=== PATIENT | female | born 1930 | race Caucasian/White ===

== ENCOUNTER 2017-12-09 11:08 | Observation (INO) | payer MEDICARE, OTHER ==
[~2017-12-09] VITALS: Ht 162.6 cm; Wt 95.0 kg
[2017-12-09 12:11] LABS: ANION GAP 14.6 mmol/L (8-16); CARBON DIOXIDE 27.7 mmol/L (21.0-32.0); CREATININE - SERUM 2.1 mg/dL (0.6-1.3); POTASSIUM - SERUM 3.3 mmol/L (3.5-5.1)
[2017-12-09] MEDS ORDERED: ULORIC40 MG PO (12:15)
[2017-12-09] MEDS ORDERED: LIPITOR10 MG PO (12:16)
[2017-12-09] MEDS ORDERED: ATROVENT HFA12.9 GM INH (12:17)
[2017-12-09] MEDS ORDERED: DIPROLENE 0.05%60 M1 TOPICAL (12:18)
[2017-12-09] MEDS ORDERED: COREG25 MG PO (12:18)
[2017-12-09] MEDS ORDERED: CATAPRES0.1 MG PO (12:19)
[2017-12-09] MEDS ORDERED: FERROUS SULFAT325 MG PO (12:20)
[2017-12-09] MEDS ORDERED: FUROSEMIDE40 MG PO (12:20)
[2017-12-09 12:21] VITALS: BMI 35.2
[2017-12-09] MEDS ORDERED: ISOSORBIDE MONO30 M1 PO (12:21)
[2017-12-09] MEDS ORDERED: PLAQUENIL200 MG PO (12:21)
[2017-12-09] MEDS ORDERED: PREDNISONE1 MG PO (12:22)
[2017-12-09] MEDS ORDERED: SYNTHROID88 MCG PO (12:22)
[2017-12-09] MEDS ORDERED: SINGULAIR10 MG PO (12:22)
[2017-12-09] MEDS ORDERED: PROTONIX40 MG PO (12:23)
[2017-12-09] MEDS ORDERED: NIFEDIPINE ER60 MG PO (12:24)
[2017-12-09] MEDS ORDERED: TRADJENTA5 MG PO (12:24)
[2017-12-09] MEDS ORDERED: ULTRAM50 MG PO (12:25)
[2017-12-09] MEDS ORDERED: TOUJEO SOL300 UNIT/1 SC (12:26)
[2017-12-09] MEDS ORDERED: NOVOLOG100 U/M1 SC (12:27)
[2017-12-09 15:33] VITALS: BP 156/51
[2017-12-09 16:07] LABS: APPEARANCE CLEAR (CLEAR); BILIRUBIN NEGATIVE (NEGATIVE); COLOR STRAW (YELLOW); GLUCOSE NEGATIVE (NEGATIVE); KETONE NEGATIVE (NEGATIVE); NITRITE NEGATIVE (NEGATIVE); PROTEIN NEGATIVE (NEGATIVE); UROBILINOGEN NORMAL (NORMAL)
[2017-12-09 20:00] VITALS: BP 167/44
[2017-12-10] VITALS: BP 146/63
[2017-12-10 04:00] VITALS: BP 119/49
[2017-12-10 08:06] LABS: ANION GAP 10.5 mmol/L (8-16); CALCIUM 8.4 mg/dL (8.5-10.1); CARBON DIOXIDE 31.9 mmol/L (21.0-32.0); CREATININE - SERUM 2.2 mg/dL (0.6-1.3); POTASSIUM - SERUM 3.4 mmol/L (3.5-5.1)
[2017-12-10 09:25] VITALS: BP 142/79
[2017-12-10 09:34] VITALS: Ht 162.6 cm; Wt 95.0 kg
[2017-12-10 11:46] VITALS: BP 124/41
[2017-12-10 16:11] VITALS: BP 133/39
[2017-12-10 20:00] VITALS: BP 144/38
[2017-12-11] VITALS: BP 148/48
[2017-12-11 04:00] VITALS: BP 128/33
[2017-12-11 06:59] LABS: ANION GAP 12.5 mmol/L (8-16); CREATININE - SERUM 1.9 mg/dL (0.6-1.3); POTASSIUM - SERUM 3.5 mmol/L (3.5-5.1)
[2017-12-11 08:46] VITALS: BP 148/48
[2017-12-11 12:23] VITALS: BP 150/49
[2017-12-11 16:00] VITALS: BP 143/47
[2017-12-11 19:00] VITALS: BP 104/41
[2017-12-12 04:00] VITALS: BP 131/83
[2017-12-12 07:44] VITALS: BP 152/46
[2017-12-12] MEDS ORDERED: BUMEX 1 MG TAB1 MG PO (10:58)
[2017-12-12] MEDS ORDERED: K-TAB10 MEQ PO (11:00)
== END 2017-12-12 12:59 | disposition home or self-care (01) ==
LOC: D.M2 11:08 → OBSVTIME 11:09 → D.M2 12-12 12:59
PROVIDERS: Internal Medicine Cardiovascular Disease
DX: I13.0 Hypertensive heart and chronic kidney disease with heart failure and stage 1 through stage 4 chronic kidney disease, or unspecified chronic kidney disease (principal); I50.9 Heart failure, unspecified; N18.9 Chronic kidney disease, unspecified; E11.22 Type 2 diabetes mellitus with diabetic chronic kidney disease

== ENCOUNTER → 2017-12-25 10:36 | Outpatient (CLI) | payer MEDICARE, OTHER ==
[2017-12-10 09:34] VITALS: BMI 35.5
[~2017-12-25 10:36] MED LIST: ATROVENT HFA12.9 GM INH; BUMEX 1 MG TAB1 MG PO; CATAPRES0.1 MG PO; COREG25 MG PO; DIPROLENE 0.05%60 M1 TOPICAL; FERROUS SULFAT325 MG PO; FUROSEMIDE40 MG PO; ISOSORBIDE MONO30 M1 PO; K-TAB10 MEQ PO; LIPITOR10 MG PO; NIFEDIPINE ER60 MG PO; NOVOLOG100 U/M1 SC; PLAQUENIL200 MG PO; PREDNISONE1 MG PO; PROTONIX40 MG PO; SINGULAIR10 MG PO; SYNTHROID88 MCG PO; TOUJEO SOL300 UNIT/1 SC; TRADJENTA5 MG PO; ULORIC40 MG PO; ULTRAM50 MG PO
== END | disposition home or self-care (01) ==
LOC: D.RAD 10:36
DX: R06.09 Other forms of dyspnea (principal)

== ENCOUNTER → 2018-03-25 12:52 | Outpatient (CLI) | payer MEDICARE, OTHER ==
[2017-12-10 09:34] VITALS: BMI 35.5
== END | disposition home or self-care (01) ==
LOC: D.RT 12:52
DX: J84.9 Interstitial pulmonary disease, unspecified (principal)

== ENCOUNTER → 2018-11-28 08:38 | Outpatient (CLI) | payer MEDICARE, OTHER ==
[2017-12-10 09:34] VITALS: BMI 35.5
== END | disposition home or self-care (01) ==
LOC: D.HCCARDIO 08:38
DX: I20.9 Angina pectoris, unspecified (principal)

== ENCOUNTER → 2019-07-17 09:29 | Outpatient (CLI) | payer MEDICARE, OTHER ==
[2017-12-10 09:34] VITALS: BMI 35.5
--- NOTE | 2019-07-20 14:34 | EC ---
PATIENT:LARRY CARRASCO DATE OF SERVICE: 07/17/19 SEX: F MEDICAL RECORD: [id number] DATE OF : 32 LOCATION:[facility] AGE OF PATIENT: 88 ADMISSION DATE: 07/17/19 REFERRING PHYSICIAN: INTERPRETING PHYSICIAN: NOY BRISCOE MD ECHOCARDIOGRAM REPORT ECHO CHARGES 4 ECHO COMPLETE Date: 07/17/19 CLINICAL DIAGNOSIS: CHF ECHOCARDIOGRAPHIC MEASUREMENTS (adult normal given) AC root (d.<3.7cm) 2.8 cm LV Septum d (<1.2 cm> 1.6 cm Valve Excursion 1.9 cm LV Septum (systole) 2.1 cm Left Atria (s.<4.0cm> 3.4 cm LVPW d(<1.2cm) 1.5 cm RV (d.<2.3cm) 2.6 cm LVPW (sytole) 2.3 cm LV diastole(<5.6CM) 5.0 cm MV E-F(>70mm/sec) cm LV systole 2.4 cm LVOT Diameter 1.8 cm MV exc.(>10mm) cm Est.ejection fraction (50-75%) % DOPPLER: LVIT cm/sec A 129 cm/sec E 103 cm/sec LA cm/sec RVSP 48.2 mmHg LVOT 130 cm/sec AOP1/2T 432.0m/s Asc. Ao 163 cm/sec RVOT 80.0 cm/sec RA cm/sec PA 94.0 cm/sec AV Gradient Peak 11.0 mmHg AV Mean 5.4 mmHg AV Area 2.2 cm MV Gradient Peak 7.3 mmHg MV Mean 1.8 mmHg MV Area cm COMMENTS: [employer]: Shayy MCFARLANDOE Operations Business Partner: 1 Dr. Briscoe TAPE# PACS Pericardial Effusion N DATE OF SERVICE: 07/17/2019 PROCEDURE: Echocardiogram. FINDINGS: 1. Left ventricular chamber size is within normal limits. Left ventricular systolic function is normal at 55%. 2. Left atrium is within normal limits. Right atrium and right ventricle chamber sizes are mildly dilated. 3. Valvular structures have normal structure and motion. ECHOCARDIOGRAM REPORT [id number] LARRY CARRASCO 4. Doppler interrogation reveals mild aortic insufficiency, [id number] mitral regurgitation, mild tricuspid regurgitation, no other valvular insufficiency or stenosis. Pulmonary systolic pressure is estimated at 48 mmHg. 5. No evidence of pericardial effusion or left ventricular thrombus. TRANSINT:[id number] Voice Confirmation ID: [id number] DOCUMENT ID: [id number] NOY BRISCOE MD at 1434 CC: [id number] DICTATION DATE: 07/17/19 1210 MENTALLY IMPAIRED TEACHER: 07/17/19 1320 DEP CLI 07/17/19 [place] [id number] [place] [id number]
== END | disposition home or self-care (01) ==
LOC: D.ECHO 09:29 → D.HCCARDIO 11:00 → D.ECHO 11:00 → D.RT 13:00
PROVIDERS: ATTEND Internal Medicine Pulmonary Disease
DX: J84.9 Interstitial pulmonary disease, unspecified (principal); I50.32 Chronic diastolic (congestive) heart failure

== ENCOUNTER → 2020-03-23 11:30 | Outpatient (CLI) | payer MEDICARE, OTHER ==
[2017-12-10 09:34] VITALS: BMI 35.5
== END | disposition home or self-care (01) ==
LOC: D.RAD 01-28 11:45
PROVIDERS: ATTEND Internal Medicine Pulmonary Disease
DX: J84.9 Interstitial pulmonary disease, unspecified (principal)